=== PATIENT | female | born 1980 | race Caucasian/White ===

== ENCOUNTER 2018-06-21 17:16 | Emergency (ER) | payer BC ==
[2018-06-21 18:37] VITALS: BP 160/89
--- NOTE | 2018-06-21 19:08 | UC ---
Throat Pain/Nasal Lito HPI - HPI Summary HPI Summary: Pt c/o sudden onset of ST and fever X 1 day. Has known exposure to strep. - History of Current Complaint Chief Complaint: UCGeneralIllness Stated Complaint: SORE THROAT,FEVER Time Seen by Provider: 06/21/18 18:47 Hx Obtained From: Patient Hx Last Menstrual Period: 06/18/18 ?: No Onset/Duration: Sudden Onset, Still Present Severity: Moderate Pain Intensity: 4 Pain Scale Used: 0-10 Numeric Associated Signs & Symptoms: Positive: Dysphagia, Fever - Epiglottits Risk Factors Epiglottis Risk Factors: Sudden Onset - Allergies/Home Medications Allergies/Adverse Reactions: Allergies Allergy/AdvReac Type Severity Reaction Status Date / Time Penicillins Allergy Rash Verified 06/21/18 18:38 Home Medications: Home Medications Ibuprofen TAB* [Motrin TAB* 400 MG] 400 mg PO Q6H PRN 06/21/18 [History Confirmed 06/21/18] PMH/Surg Hx/FS Hx/Imm Hx Previously Healthy: Yes - Surgical History Surgical History: Yes Surgery Procedure, Year, and Place: C section - Family History Known Family History: Positive: Cardiac Disease - Social History Occupation: Employed Full-time Lives: With Family Alcohol Use: Rare Substance Use Type: None Smoking Status (MU): Never Smoked Tobacco Have You Smoked in the Last Year: No Review of Systems All Other Systems Reviewed And Are Negative: Yes Constitutional: Positive: Fever, Chills, Fatigue Skin: Positive: Negative Eyes: Positive: Negative ENT: Positive: Sore Throat Respiratory: Positive: Negative Cardiovascular: Positive: Negative Gastrointestinal: Positive: Negative Genitourinary: Positive: Negative Motor: Positive: Negative Neurovascular: Positive: Negative Musculoskeletal: Positive: Myalgia Neurological: Positive: Headache Psychological: Positive: Negative Is Patient Immunocompromised?: No Physical Exam Triage Information Reviewed: Yes Appearance: Well-Appearing, Ill-Appearing Vital Signs: Initial Vital Signs Temp 100.4 F 06/21/18 18:33 Pulse 158 06/21/18 18:33 Resp 16 06/21/18 18:33 BP 160/89 06/21/18 18:33 Pulse Ox 100 06/21/18 18:33 Vital Signs Reviewed: Yes Eye Exam: Normal ENT Exam: Normal ENT: Positive: Pharyngeal erythema, Tonsillar swelling Dental Exam: Normal Neck exam: Normal Respiratory Exam: Normal Cardiovascular Exam: Normal Musculoskeletal Exam: Normal Neurological Exam: Normal Psychological Exam: Normal Skin Exam: Normal Throat Pain/Nasal Course/Dx - Differential Dx/Diagnosis Differential Diagnosis/HQI/PQRI: Pharyngitis, Tonsillitis Provider Diagnosis: Strep sore throat Discharge - Sign-Out/Discharge Documenting (check all that apply): Patient Departure All imaging exams completed and their final reports reviewed: No Studies - Discharge Plan Condition: Stable Disposition: HOME Prescriptions: Azithromycin 500 mg PO DAILY #5 tablet Patient Education Materials: Strep Throat (ED) Forms: *Work Release Referrals: Mihaela Gardner NP [Primary Care Provider] - If Needed - Billing Disposition and Condition Condition: STABLE Disposition: Home
== END 2018-06-21 19:03 | disposition home or self-care (01) ==
LOC: UCCORT 17:16
DX: J02.0 Streptococcal pharyngitis (principal); Z88.0 Allergy status to penicillin
CPT/HCPCS: 87651; 99202; G0463